=== PATIENT | male | born 2000 | race Caucasian/White ===

== ENCOUNTER 2019-03-20 04:21 | Emergency (ER) | payer OTHER ==
[~2019-03-20] VITALS: Ht 177.8 cm; Wt 70.3 kg
[2019-03-20] MEDS ORDERED: RECTICARE30 GM TOP (05:34)
== END 2019-03-20 06:05 | disposition home or self-care (01) ==
LOC: ER 04:21
DX: K64.4 Residual hemorrhoidal skin tags (principal); F17.200 Nicotine dependence, unspecified, uncomplicated
CPT/HCPCS: 99282